=== PATIENT | female | born 1945 | race Caucasian/White ===

== ENCOUNTER → 2016-10-27 | Outpatient (CLI) | payer MEDICARE, OTHER ==
[~2016-10-27] MED LIST: AMLO5TAB2 PO; ASPI1TAB69 PO; ATOR10TA15 PO; BUPR300T PO; LORA10TA PO; LORA1TAB12 PO; MELO7.5T4 PO; PRAM0.25 PO; PROP20TA3 PO; TRAZ100T4 PO
[2016-10-27 10:50] LABS: BASOPHIL # 0.1 TH/MM3 (0-0.2); BASOPHIL % 1.4 % (0.0-2.0); EOSINOPHIL # 0.3 TH/MM3 (0-0.4); HEMATOCRIT 37.1 % (35.0-46.0); HEMO FLAGS DIFF FINAL; LYMPH % 20.2 % (9.0-44.0); LYMPHOCYTE # 1.3 TH/MM3 (1.0-4.8); MEAN CELL VOLUME 92.2 FL (80.0-100.0); MEAN CORPUSCULAR HEMOGLOBIN 31.2 PG (27.0-34.0); MEAN CORPUSCULAR HGB CONC 33.9 % (32.0-36.0); NEUT % 64.4 % (16.0-70.0); PLATELET COUNT 290 TH/MM3 (150-450); RED BLOOD COUNT 4.03 MIL/MM3 (4.00-5.30); RED CELL DISTRIBUTION WIDTH 13.2 % (11.6-17.2); WHITE BLOOD COUNT 6.2 TH/MM3 (4.0-11.0)
[2016-10-27 11:18] LABS: BICARBONATE 31.8 MEQ/L (21.0-32.0); POTASSIUM 4.5 MEQ/L (3.5-5.1)
== END ==
LOC: CPRE 10:23
PROVIDERS: ATTEND Orthopaedic Surgery Orthopaedic Surgery of the Spine
DX: Z01.812 Encounter for preprocedural laboratory examination (principal); M51.36 Other intervertebral disc degeneration, lumbar region
CPT/HCPCS: 36415; 80048; 85025

== ENCOUNTER 2016-11-15 10:25 | Observation (INO) | payer MEDICARE, OTHER ==
[~2016-11-15] VITALS: Ht 154.9 cm; Wt 72.6 kg
[~2016-11-15 10:25] MED LIST changes: +NEOSTIGMINE 3 MG/3 ML SYR IV ONE; +NORMOSOL R INJ 1,000 ML IV ONE; +ONDANSETRON HCL 4 MG/2 ML VIAL IV PUSH ONE; +PROPOFOL 200 MG/20 ML AMP IV ONE
[2016-11-15 10:35] VITALS: BP 149/70; PULSE 77; RESP 20; TEMP 98; O2SAT 100
[2016-11-15] MEDS ORDERED: fentaNYL CITRATE 250 MCG/5 ML AMP ONE (12:08)
[2016-11-15] MEDS ORDERED: MIDAZOLAM HCL 2 MG/2 ML VIAL ONE (12:08)
[2016-11-15] MEDS ORDERED: ARTIFICIAL TEARS OPTH OINT 3.5 APPLIC/3.5 GM TUBO ONE (12:09)
[2016-11-15] MEDS ORDERED: DICLOFENAC SODIUM 37.5 MG/ML VIAL IV PUSH ONE (12:09)
[2016-11-15] MEDS ORDERED: ACETAMINOPHEN 1000 MG/100 ML VIAL IV ONE (12:09)
[2016-11-15] MEDS ORDERED: DEXAMETHASONE SOD PHOS 4 MG/ML VIAL ONE (12:09)
[2016-11-15] MEDS ORDERED: ceFAZolin INJ 1,000 MG VIAL ONE (12:15)
[2016-11-15] MEDS ORDERED: FAMOTIDINE 20 MG/2 ML VIAL ONE (12:38)
[2016-11-15] MEDS ORDERED: METOPROLOL TARTRATE 25 MG TAB PO PRN (12:45)
[2016-11-15] MEDS ORDERED: SODIUM CHLORID 0.9% 500 ML IV SCH (12:45)
[2016-11-15] MEDS ORDERED: INSULIN HUMAN REGULAR 1,000 UNITS/10 ML VIAL SQ PRN (12:45)
[2016-11-15] MEDS ORDERED: LACTATED RINGER'S 1000 ML IV SCH (12:45)
[2016-11-15] MEDS ORDERED: APREPITANT 40 MG CAP ONE (12:47)
[2016-11-15] MEDS ORDERED: GENTAMICIN SULFATE 80 MG/2 ML VIAL IRRIGATION ONE (12:58)
[2016-11-15] MEDS ORDERED: BUPIVACAINE/EPINEPHRINE 0.25% PF 30 ML VIAL INFIL ONE (12:58)
[2016-11-15] MEDS ORDERED: SOD PHOSPHATE/SOD BIPHOSPHATE (ADULT) ENEMA 133ML PR PRN (15:00)
[2016-11-15] MEDS ORDERED: ONDANSETRON HCL 4 MG/2 ML VIAL IV PRN (15:00)
[2016-11-15] MEDS ORDERED: MORPHINE SULFATE 4 MG/ML INJ IV PUSH PRN (15:00)
[2016-11-15] MEDS ORDERED: ALUMINUM/MAGNESIUM/SIMETH 30 ML CUP PO PRN (15:00)
[2016-11-15] MEDS ORDERED: BISACODYL 10 MG SUPP PR PRN (15:00)
[2016-11-15] MEDS ORDERED: ACETAMINOPHEN/HYDROcodone 325 MG/7.5 MG TAB PO PRN (15:00)
[2016-11-15] MEDS ORDERED: SODIUM CHLORIDE 0.9% FLUSH 5 ML FLUSH IVF PRN (15:00)
[2016-11-15] MEDS ORDERED: Post-op Orders (for Pharmacy) MISC XX ONE (15:00)
--- NOTE | 2016-11-15 15:35 | RADRPT ---
EXAM DATE/TIME: 11/15/2016 14:40 [place] COMPARISON: No previous studies available for comparison. INDICATIONS: L2-5 laminectomy. MEDICAL HISTORY: None. SURGICAL HISTORY: None. ENCOUNTER: Initial ACUITY: 1 day PAIN SCORE: Non-responsive. LOCATION: Bilateral L-spine. FINDINGS/ CONCLUSION: Metallic probe is directed at L2-3 and L4-5. Bonilla Varma MD FACR on November 15, 2016 at 15:24 Board Certified Radiologist. This report was verified electronically.
[2016-11-15 16:00] VITALS: BP 137/67; PULSE 68; RESP 14; TEMP 95.7; O2SAT 100
[2016-11-15] MEDS ORDERED: DO NOT ADM ANY ANTICOAGULANT DRUGS XX PRN (16:00)
[2016-11-15 18:32] VITALS: O2SAT 100
[2016-11-15] MEDS: PROPRANOLOL HCL 20 MG TAB PO SCH (19:55)
[2016-11-15 20:15] VITALS: BP 119/56; PULSE 78; RESP 17; TEMP 97.4; O2SAT 96
[2016-11-15] MEDS ORDERED: traZODone HCL 100 MG TAB PO SCH (21:00)
[2016-11-15] MEDS: SODIUM CHLORIDE 0.9% FLUSH 5 ML FLUSH IVF SCH (21:00)
[2016-11-15] MEDS ORDERED: ATORVASTATIN 10 MG TAB PO SCH (21:00)
[2016-11-15] MEDS ORDERED: PRAMIPEXOLE DIHYDROCHLORIDE 0.25 MG TAB PO SCH (21:00)
[2016-11-16 00:25] VITALS: BP 113/56; PULSE 78; RESP 18; TEMP 96.2; O2SAT 94
[2016-11-16 04:00] VITALS: BP 127/60; PULSE 74; RESP 18; TEMP 97.8; O2SAT 94
[2016-11-16] MEDS: LACTATED RINGER'S 1000 ML INJ 1,000 ML IV SCH ×2 (04:30→08:42)
[2016-11-16] MEDS: ACETAMINOPHEN/HYDROcodone 325 MG/7.5 MG TAB PO PRN ×2 (05:53→09:53)
--- NOTE | 2016-11-16 07:21 | PD.ORT.PN ---
Subjective Subjective Remarks POD#1 L2-5 Decompressive laminectomy Pt has no c/o pain numbness, or weakness Explained to patient operative findings Objective Vitals Vital Signs Date Time Temp Pulse Resp B/P Pulse Ox O2 Delivery O2 Flow Rate FiO2 11/16/16 00:25 96.2 78 18 113/56 94 11/15/16 20:15 97.4 78 17 119/56 96 11/15/16 18:32 100 Nasal Cannula 2.00 11/15/16 16:05 97.8 65 15 131/68 100 Nasal Cannula 2 11/15/16 16:00 95.7 68 14 137/67 100 11/15/16 15:45 69 15 125/65 100 Nasal Cannula 2 11/15/16 15:30 69 15 142/67 100 Nasal Cannula 2 11/15/16 15:15 71 15 128/66 100 Nasal Cannula 2 11/15/16 15:08 97.6 79 15 136/70 100 Nasal Cannula 2 11/15/16 10:35 98.0 77 20 149/70 100 I/O 11/15/16 11/15/16 11/15/16 11/16/16 11/16/16 11/16/16 07:00 15:00 23:00 07:00 15:00 23:00 Intake Total 2534 ml Output Total 475 ml Balance 2059 ml Intake Oral 480 ml IV Total 954 ml Other 1100 ml Output Urine Total 400 ml Estimated Blood Loss 75 ml # Voids 2 # Bowel Movements 0 Objective Remarks Dressings dry Motor+5/5= adamaris LE Assessment & Plan Assessment and Plan Ortho stable D/C home today usual d/c instructions Gerardo Justice MD Nov 16, 2016 07:21
[2016-11-16 08:12] VITALS: BP 121/57; PULSE 70; RESP 16; TEMP 96.6; O2SAT 93
[2016-11-16 08:14] VITALS: O2SAT 94
[2016-11-16] MEDS ORDERED: MULTIVITAMINS/MINERALS THERAPEUTIC TAB PO SCH (09:00)
[2016-11-16] MEDS ORDERED: LORazepam 1 MG TAB PO SCH (09:00)
[2016-11-16] MEDS ORDERED: ASPIRIN EC 81 MG TABEC PO SCH (09:00)
[2016-11-16] MEDS ORDERED: LORATADINE 10 MG TAB PO SCH (09:00)
[2016-11-16] MEDS ORDERED: buPROPion HCL 150 MG SUSTAINED RELEASE TAB PO SCH (09:00)
[2016-11-16] MEDS ORDERED: amLODIPine BESYLATE 5 MG TAB PO SCH (09:00)
[2016-11-16] MEDS: SODIUM CHLORIDE 0.9% FLUSH 5 ML FLUSH IVF SCH (09:00)
[2016-11-16] MEDS: PROPRANOLOL HCL 20 MG TAB PO SCH (09:53)
[2016-11-16 12:00] VITALS: BP 109/56; PULSE 76; RESP 17; TEMP 98.6; O2SAT 96
[2016-11-16] MEDS ORDERED: DOCUSATE SODIUM 100 MG CAP PO SCH (21:00)
--- NOTE | 2016-11-18 23:15 | MP ---
cc: WALTER HOYT M.D. DATE OF SURGERY 11/15/16 PREOPERATIVE DIAGNOSIS 1. L2-L5 spinal stenosis. 2. Lumbar spine degenerative disk osteoarthritis. 3. Bilateral lumbar radiculitis with bilateral lower extremity weakness 4. Thoracic lumbar spine scoliosis. POSTOPERATIVE DIAGNOSIS 1. L2-L5 spinal stenosis. 2. Lumbar spine degenerative disk osteoarthritis. 3. Bilateral lumbar radiculitis with bilateral lower extremity weakness 4. Thoracic lumbar spine scoliosis. PROCEDURE L2, L3, L4, L5 bilateral decompressive laminectomy, bilateral foraminotomy, partial facetectomy, decompression of nerve roots. SURGEON Liang Hoyt MD ASSESSMENT MAL Ramey ESTIMATED BLOOD LOSS 75 mL COMPLICATIONS None ANESTHESIA General DRAINS None. CONDITION Stable PLAN OF ACTIVITY Per orders. PROCEDURE IN DETAIL My development assistant Susan, MAL, was present for entire surgical case. She was medically necessary for the entire case because of the complexity of the case and to facilitate the performance of the procedure. The CUSTOMER SUPPORT COORDINATOR at the back table was not of a skill set for this case to manipulate the instruments e.g. multiple different types of soft tissue retractors, nerve root retractors. The patient was brought into the operating room, had satisfactory general endotracheal anesthesia by the Department of Anesthesia. The patient was carefully transferred onto the [facility] spinal frame. Lumbosacral spine was prepped and draped in usual sterile manner. Localizing x-ray was used to confirm the limits of the decompression of L2-L5. 30 mL of 0.25% Marcaine with epinephrine was used to infiltrate the operative site to provide postoperative hemostasis and also to help provide postoperative hemostasis and analgesia. Midline incision made over the lower lumbosacral spine area. Dissected down skin and subcutaneous tissue. The paraspinal muscle were gently removed from posterior elements bilaterally. Localizing x-ray was used throughout the operative procedure for L2-L3, L4-L5. Initially starting at L5, a L5 bilateral decompressive laminectomy and partial facetectomy performed. Also same was performed at L4. Bilateral decompressive laminectomy L3 decompressive laminectomy at L2 decompressive laminectomy. The patient was found to have severe spinal stenosis at L2 and L3 and moderately severe spinal stenosis at L4 and L5. There was no evidence of any cerebrospinal fluid leaks or fistulas. There was no significant bleeding. The wound was irrigated with copious amounts of saline. The wound itself was dry. The wound was closed in routine manner. The fascia was closed with #2 Tycron suture. Subcutaneous tissue layers with 0 Vicryl and 2-0 Vicryl. Skin was approximated with multiple interrupted 2-0 nylon. Sterile dressings were applied. The patient tolerated the procedure well and were to recovery room in stable and satisfactory condition. MD PRAVEEN Marin/ /2:56 PM /11:00 PM [facility]
== END 2016-11-16 13:09 | disposition home or self-care (01) ==
LOC: HOR 10:25 → HSDI 12:25 → EDSTATUS 12:30 → HSDI 15:05 → HOR 15:05 → N06A 16:21
PROVIDERS: ADMIT Orthopaedic Surgery Orthopaedic Surgery of the Spine; ATTEND Orthopaedic Surgery Orthopaedic Surgery of the Spine
DX: M48.06 Spinal stenosis, lumbar region (principal); M51.16 Intervertebral disc disorders with radiculopathy, lumbar region; M41.85 Other forms of scoliosis, thoracolumbar region; I10 Essential (primary) hypertension; E78.5 Hyperlipidemia, unspecified; J45.909 Unspecified asthma, uncomplicated
CPT/HCPCS: 00630; 63047; 63048; 72020; 76000; 86850; 86900; 86901; 94150; 97162; G0378; G8987; G8988; J0131; J0690; J1100; J1130; J1580; J2250; J2405; J2710; J3010; J8501